=== PATIENT | male | born 1960 | race Asian ===

== ENCOUNTER → 2023-06-12 11:47 | Outpatient (REF) | payer OTHER, SELFPAY | LOC: HWRAD 11:47 | PROVIDERS: ATTENDING PHYSICIAN Family Medicine | DX: R05.9 Cough, unspecified (principal) | CPT/HCPCS: 71046 ==

== ENCOUNTER → 2024-02-02 15:30 | Outpatient (REF) | payer OTHER, SELFPAY | LOC: HWRAD 15:30 | PROVIDERS: ATTENDING PHYSICIAN Specialist; FAMILY PHYSICIAN Family Medicine | DX: N20.1 Calculus of ureter (principal) | CPT/HCPCS: 74176 ==